=== PATIENT | male | born 2005 | race Caucasian/White ===

== ENCOUNTER 2025-04-15 10:06 | Outpatient (REF) | payer OTHER, SELFPAY ==
[2025-04-15 13:05] LABS: MANUAL DIFF FLAG NO
[2025-04-15 13:15] LABS: Hematocrit 50.4 % (42.0-52.0); Hemoglobin 17.0 g/dl (14.0-18.0); Imm Gran Abs Auto 0.01 X10*3/uL (0.00-0.03); Imm Gran Pct Auto 0.2 % (0.0-0.4); Lymphocytes Absolute Auto 1.7 X10*3/uL (1.2-4.9); Mean Corpuscular HGB Conc 33.7 g/dl (31.0-36.0); Mean Corpuscular Hemoglobin 29.9 pg (27.0-33.0); Mean Corpuscular Volume 88.7 fL (80.0-98.0); NRBC Abs Auto 0.000 X10*3/uL (0.0-0.012); NRBC Pct Auto 0.0 /100WBC (0.0-0.2); Platelet Count 286 X10*3/uL (160-400); Red Blood Count 5.68 X10*6/uL (4.60-5.80); White Blood Count 6.2 X10*3/uL (4.8-10.8)
[2025-04-15 13:18] LABS: Appearance Urine Clear; Glucose Urine UA Negative (Negative); PH 5.5 (5.0-9.0); Specific Gravity - Urine >= 1.030 (1.005-1.025)
[2025-04-15 14:43] LABS: CT PCR Urine NOT DETECTED (Not Detect.); NG PCR Urine NOT DETECTED (Not Detect.)
[2025-04-15 18:59] LABS: Alanine Aminotransferase 33 U/L (0-40); Albumin Level 5.1 g/dL (3.5-5.0); Alkaline Phosphatase 99 U/L (39-117); Anion Gap 13 (12-20); Aspartate Amino Transferase 28 U/L (5-37); Blood Urea Nitrogen 20 mg/dL (9-16); Calcium 10.0 mg/dL (8.4-10.2); Carbon Dioxide 27 mmol/L (22-29); Chloride 106 mmol/L (96-108); Cholesterol 164 mg/dL (<200); Estimated Glomerular Filt Rate > 60; HDL Cholesterol 37 mg/dL (>40); Magnesium 2.1 mg/dL (1.6-2.6); Potassium 4.5 mmol/L (3.3-5.1); Sodium 141 mmol/L (135-145); Total Protein 8.0 g/dL (6.5-8.0); Triglycerides 125 mg/dL (<150)
[2025-04-15 19:24] LABS: Folate 8.6 ng/mL (> or = 4.0); Vitamin B12 469 pg/mL (200-900)
[2025-04-16 04:40] LABS: Syphilis Screen Nonreactive (Nonreactive)
[2025-04-16 05:02] LABS: HBS Num1 1.19 mIU/mL (0-7.99); HBsAGNum1 0.42 S/CO (0.00-0.99); HIV Num 1 0.09 S/CO (0.00-0.99); Hepatitis B Surface Antigen Negative (Negative); ~HepC Num1 0.08 S/CO (0.00-0.79); ~Hepatitis B Surface Antibody NONREACTIVE (Nonreactive); ~Hepatitis C Antibody Nonreactive (Nonreactive)
[2025-04-21 15:09] LABS: VITAMIN D (1,25 OH) D3 39 pg/mL; Vit D (1,25-Dihydroxy) Total 39 pg/mL (18-72); Vitamin D (1,25 OH) D2 <8 pg/mL
== END 2025-04-15 10:07 | disposition home or self-care (01) ==
LOC: HO.HKASLDS 10:06
PROVIDERS: PCP Student in an Organized Health Care Education/Training Program; Visit Provider Student in an Organized Health Care Education/Training Program
DX: R45.851 Suicidal ideations (principal); F90.9 Attention-deficit hyperactivity disorder, unspecified type; F32.A Depression, unspecified; F41.9 Anxiety disorder, unspecified; G25.2 Other specified forms of tremor; J45.20 Mild intermittent asthma, uncomplicated; Z13.1 Encounter for screening for diabetes mellitus
CPT/HCPCS: 80053; 80061; 81003; 82607; 82652; 82746; 83036; 83735; 84443; 85025; 86706; 86780; 86803; 87340; 87389; 87491; 87591; 96127

== ENCOUNTER 2025-04-15 10:06 | Outpatient (AMB) | payer OTHER, SELFPAY ==
--- NOTE | 2025-04-15 10:16 | A.OFFPC_ITS ---
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 Accompanied by: mother Allergies amoxicillin Allergy (Intermediate, Verified 04/15/25 10:20) Rash sulfamethoxazole (From Bactrim) Allergy (Intermediate, Verified 04/15/25 10:20) Swelling trimethoprim (From Bactrim) Allergy (Intermediate, Verified 04/15/25 10:20) Swelling Tobacco use date assessed: 04/15/25 Dental Screening Dental Screen Date: 04/15/25 Did you have a dental visit in the last 12 months?: Yes Did you have a dental problem in the last 6 months where you did not have access to dental care?: Yes Was dental information given to patient?: Patient has dentist HPI HPI Comments History of Present Illness Details History of Present Illness The patient is a 20 year old individual presenting for evaluation of depression and to establish care. Depression with Suicidal Ideation: The patient reports feelings of depression that began approximately one year ago, which the patient attributes to cumulative guilt over past actions. The patient experiences frequent thoughts of self-harm and fears losing control and acting on these temptations. There is a history of one self-harm attempt using a knife, although the patient denies any active plans to self-harm at present. The patient first disclosed these feelings to the patient's mother two to three months ago and recently started seeing a counselor. This is the first time the patient has discussed these concerns with a physician. Anxiety: The patient has a past diagnosis of high anxiety from childhood. Due to this anxiety, the patient required special classes and could not be in a large classroom setting as it was overwhelming. Attention-Deficit/Hyperactivity Disorder: The patient carries a past diagnosis of Attention-Deficit/Hyperactivity Disorder (ADHD) from childhood. Mild Intermittent Asthma: The patient has a history of mild intermittent asthma, as noted in prior medical records. Fine Motor Essential Tremor: The patient has a history of a fine motor essential tremor, as documented in previous medical records. Surgical History: - No prior surgical history was reported . Medications: - The patient is not currently taking an y medications. Social History: - Employment and Education: The patient is currently not employed and not enrolled in school, stating a belief that the patient is mentally unstable for a job. - Substance Use: The patient denies smok ing or illicit drug use and reports occasional alcohol consumption around holidays. - Social Support: The patient lives with the patient's parents and identifies the patient's mother as the person the patient trusts the most, with whom the patient feels an emotional connection. - Developmental History: The patient had anger issues during childhood, for which the patient received therapy, attended special classes, and underwent psychiatric evaluations. - Aspirations: The patient expresses a d esire to take EMT classes after achieving better mental health. Family History: - Depression runs in the family. Diagnostic Results: - No diagnostic results were reviewed du ring this visit. Past Medical History - History of Attention-Deficit/Hyperacti vity Disorder (ADHD) diagnosed in childhood. - History of high anxiety, requiring spe cial classes in school. - History of mild intermittent asthma. - History of a fine motor essential trem or. - Past self-harm attempt by using a knif e. - Childhood history of anger issues, whi ch was managed with therapy, special classes, and psychological evaluations. - Previously received care at [facility] with Dr. Kenn Hummel. Health Maintenance - The patient is establishing care with a new primary care physician as the patient is now 20 years old. - Recommended referral to a neurobehavio ral specialist for formal psychiatric evaluation. - A comprehensive blood panel was ordere d to provide an overall picture of health, including screenings for HIV, hepatitis B, and hepatitis C. [facility] Medical History (Updated 04/15/25 @ 11:05 by Ivan Wyman MD) Anxiety Depression Mild intermittent asthma ADHD Surgical History (Updated 04/15/25 @ 10:22 by Isaías Vasquez CMA) English teeth extracted Family History (Updated 04/15/25 @ 10:24 by Isaías Vasquez CMA) Mother FH: mental illness Paternal Grandmother FH: mental illness Maternal Aunt FH: mental illness Maternal Grandfather FH: mental illness Skin cancer Diabetes Paternal Grandfather Heart disease Maternal Grandfather Prostate cancer Maternal Uncle Skin cancer Other Hypertension Social History (Updated 04/15/25 @ 10:25 by Isaías Vasquez CMA) Housing: House Alcohol intake: current Comment: Ocasionally Patient Tobacco Use Status: Never used Tobacco e-Cigarette/Vaping Use: Never Used Second Hand Smoke Exposure: No service: No Current occupational status: unemployed Current occupational exposures/hazards: No Cognitive needs: No Hearing needs: No Vision needs: No Questionnaire PHQ-9 Over the last 2 weeks, how often have you been bothered by any of the following problems? 1. Little interest or pleasure in doing things: several days 2. Feeling down, depressed, or hopeless: more than half the days 3. Trouble falling or staying asleep, or sleeping too much: several days 4. Feeling tired or having little energy: several days 5. Poor appetite or overeating: not at all 6. Feeling bad about yourself - or that you are a failure or have let yourself or your family down: more than half the days 7. Trouble concentrating on things, such as reading the newspaper or watching television: several days 8. Moving or speaking so slowly that other people could have noticed. Or the opposite - being so fidgety or restless that you have been moving around a lot more than usual: several days 9. Thoughts that you would be better off or of hurting yourself in some way: more than half the days Total score: 11 Depression Screening Interpretation: Positive Depression Screening Done: Yes 34771 - PHQ-9 Billing: Yes Source: Developed by Drs. Jonathan Martins, Nilda Jaramillo, Terry Garcia and colleagues, with an educational champ from [employer]. Thrive Questionnaire Date Thrive assessed: 04/15/25 I am a: Patient What is your living situation today?: I have a steady place to live Within the past 12 months, did the food you bought not last and you didn't have the money to get more?: Never true Within the past 12 months, did you worry whether your food would run out before you got money to buy more?: Never true Do you have trouble paying for medicines?: No Do you have trouble getting transportation to medical appointments?: No Do you have trouble paying your heating and electricity bill?: No Do you have trouble taking care of your child, family member or friend?: No Are you currently unemployed and looking for a job?: I choose not to answer this question Are you interested in more education?: Yes Please select the resources that you would like help with: None Currently or been in a relationship where the following occur: I choose not to answer THRIVE Score: 0 AUDIT C Alcohol Use Questionnaire (AUDIT-C) 1. How often do you have a drink containing alcohol?: Monthly or less 2. How many drinks containing alcohol do you have on a typical day when you are drinking?: 1 or 2 3. How often do you have six or more drinks on one occasion?: Never Total Score: 1 CORETTA-7 AMB Questionnaire CORETTA-7 Date CORETTA - 7 assessed: 04/15/25 Feeling nervous, anxious, or on edge: 2 = More than half the days Not being able to stop or control worryin = More than half the days Worrying too much about different things: 2 = More than half the days Trouble relaxin = Several days Being so restless that it is hard to sit still: 1 = Several days Becoming easily annoyed or irritable: 1 = Several days Feeling afraid as if something awful might happen: 1 = Several days Total CORETTA-7 score (0-4 normal; 5-9 mild; 10-14 moderate; 15-21 severe): 10 Source: Developed by Drs. Jonathan Martins, Nilda Jaramillo, Terry Garcia and colleagues, with an educational champ from [employer]. CORETTA-7 Assessment Billing CORETTA-7 Assessment Tool: CORETTA-7 Assessment 69827 Review of Systems Narrative Review of Systems - Psychiatric: Reports depression, frequent thoughts of self-harm, and fear of losing control. - Constitutional: Reports intermittent sleep. - Genitourinary/Gastrointestinal: Denies issues with urination or bowel movements. - Musculoskeletal/Extremities: Denies leg swelling. 10-point ROS reviewed and negative except as noted in HPI Physical exam (Primary Care) Vital Signs: Last Vital Signs Temp 98.3 F 04/15/25 10:25 Pulse 102 H 04/15/25 10:25 Resp 18 04/15/25 10:25 BP 125/74 04/15/25 10:25 Pulse Ox 99 04/15/25 10:25 BMI result Body Mass Index 27.5 Tobacco/Smoking Status: Tobacco use Status Tobacco use date assessed 04/15/25 04/15/25 10:27 Patient Tobacco Use Status Never used Tobacco 04/15/25 10:27 e-Cigarette/Vaping Use Never Used 04/15/25 10:27 PHQ-9: PHQ-9 Score PHQ-9: Total score 11 04/15/25 10:18 Depression Screening Interpretation: Positive Thrive Assessment: Date of Thrive Assessment Date Thrive assessed 04/15/25 04/15/25 10:18 Currently or been in a relationship where the following occur: I choose not to answer Narrative Physical Exam General: Well-appearing, in no acute distress. Vital signs: Within normal limits. HEENT: Normocephalic, atraumatic. PERRLA, EOMI. Conjunctiva clear, sclera anicteric. Oropharynx clear, mucous membranes moist. TMs intact bilaterally. Neck: Supple, no lymphadenopathy, no thyromegaly, no JVD or carotid bruits. Cardiovascular: RRR, normal S1/S2, no murmurs, rubs, or gallops. Peripheral pulses 2+ and symmetric. No edema. Respiratory: Lungs clear to auscultation bilaterally, no wheezes, rales, or rhonchi. Normal effort. Abdomen: Soft, non-tender, non-distended. Normoactive bowel sounds. No hepatosplenomegaly, no masses. MSK: Full range of motion, no joint swelling or deformity. Normal gait. Skin: Warm, dry, intact. No rashes, lesions, or pallor. Old self-harm tracy noted, barely visible. Neuro: Alert and oriented x3. Cranial nerves II-XII intact. Strength 5/5 throughout. Sensation intact. Reflexes 2+ symmetric. Normal coordination and gait. Psych: Appropriate mood and affect. Normal judgment and insight. Reports depression and high anxiety. History of ADHD and mild intermittent asthma. No current suicidal ideation, but past self-harm noted. Engaged in counseling. Coding Level of Care Code New Pt Level 4 (75047) Diagnoses ADHD F90.9 Mild intermittent asthma J45.20 Depression F32.A Anxiety F41.9 Additional Codes CORETTA-7 Assessment Billing - CORETTA-7 Assessment Tool: CORETTA-7 Assessment 07957 ([id number]) PHQ-9 - 46193 - PHQ-9 Billing: Yes ([id number]) Assessment & Plan Assessment & Plan (1) ADHD: Code(s): F90.9 - Attention-deficit hyperactivity disorder, unspecified type Category: Medical (2) Mild intermittent asthma: Code(s): J45.20 - Mild intermittent asthma, uncomplicated Category: Medical (3) Depression: Code(s): F32.A - Depression, unspecified Category: Medical (4) Anxiety: Code(s): F41.9 - Anxiety disorder, unspecified Category: Medical Plan Consent Consent for the visit and physical exam was implied by the patient's presence and participation. The patient verbally agreed to the plan for laboratory testing and referral to a specialist. No specific risks, benefits, or alternatives were detailed for the planned blood work or referrals. Patient was informed and verbally consented to the use of an ambient scribe for clinic note documentation during this visit. Plan 1. Depression With Suicidal Ideation - The patient was provided with a referral to [facility] for a formal evaluation, diagnosis, and comprehensive management plan. - Strongly advised the patient and the patient's mother to proceed to the nearest emergency room for any acute exacerbation of suicidal or self-harm ideation. - Discussed that medication would be appropriate for stabilization but will be deferred until after the specialist evaluation. - Provided spiritual counseling and encouragement. 2. Health Maintenance / New Patient Establishment - Ordered a comprehensive blood panel to establish a baseline and evaluate overall health, including a complete blood count, comprehensive metabolic panel, thyroid function tests, hemoglobin A1c, lipid panel, vitamin B12, folate, vitamin D, HIV, and hepatitis screening. - Scheduled a follow-up appointment in two weeks to review lab results and check on the status of the psychiatric referral. Discussion Notes I met with the 20-year-old patient and the patient's mother today. The patient presented with concerns for depression with associated suicidal ideation and a past self-harm attempt. Given the severity of the symptoms, I explained the importance of a formal and comprehensive psychiatric evaluation before initiating any pharmacotherapy. I provided a direct referral to [facility] for this purpose and stressed that they should seek immediate care in an emergency room if the patient feels like hurting themself. I also informed them of my plan to order comprehensive baseline lab work to assess for any underlying medical issues. We will follow up in two weeks to review these results and the progress with the mental health referral. I also engaged the patient in an extended discussion about guillermo and personal worth, as the patient identified as a believer, offering this as a source of strength and support. Both the patient and the patient's mother were in agreement with the proposed plan. Patient Instructions - Please call [facility] at [phone] as soon as possible to set up an evaluation, which can be done over Zoom. - If you have any feelings of wanting to hurt yourself, go to the nearest emergency room immediately or call your parents right away. - Please go to the lab to have your blood drawn for the tests that were ordered. - You have a follow-up appointment scheduled in two weeks to go over your lab results. - Engage in prayer and reading the Bible to help fortify yourself. Medical Decision Making The patient is a 20 year old individual [place] [facility] [place] with a chief complaint of depression and suicidal ideation with a past attempt. The patient's history of a self-harm attempt with a knife and frequent thoughts of self-harm indicate a high-risk situation requiring careful and immediate management. My primary goal is to ensure the patient's safety through stabilization and appropriate diagnosis. I have deferred the initiation of antidepressant medication at this visit. A formal evaluation by a personnel security specialist is crucial to confirm the diagnosis, rule out other conditions such as bipolar disorder, and select the most appropriate pharmacotherapy. Therefore, I have made an urgent referral to [facility] for this purpose and provided explicit instr uctions for emergency room use if ideation escalates. To establish the patient as a new primary care patient and rule out any organic causes contributing to the patient's symptoms, a comprehensive blood panel has been ordered. A follow-up in two weeks will allow for review of laboratory results and assessment of progress with the specialty referral. The patient's strong family support and personal guillermo were identified as significant protective factors and were incorporated into the counseling and overall plan. Total Time Statement 30 min Total time spent caring for the patient today includes pre-visit chart review, documentation, review of laboratory and diagnostic imaging results, medication reconciliation, medically necessary evaluation, counseling on diagnoses, care coordination, ordering appropriate tests and medications, review of tests performed by other providers, reporting test results to the patient, and communication with other healthcare providers. Orders: Orders Hepatitis B Surface Antigen Today Z13.9 - Encounter for screening, unspecified Syphilis Screen Today Z13.9 - Encounter for screening, unspecified Comprehensive Met. Panel Today Z13.9 - Encounter for screening, unspecified CT NG by PCR Urine Today Z13.9 - Encounter for screening, unspecified HIV Ab/Ag Today Z13.9 - Encounter for screening, unspecified UA CC w/rflx Micro + Cult Today Z13.9 - Encounter for screening, unspecified Lipid Panel Today Z13.9 - Encounter for screening, unspecified Hemoglobin A1c Today Z13.9 - Encounter for screening, unspecified Vitamin D 1,25 dihydroxy Today Z13.9 - Encounter for screening, unspecified Complete Blood Count Auto Diff Today Z13.9 - Encounter for screening, unspecified Hepatitis C Antibody Today Z13.9 - Encounter for screening, unspecified TSH reflex Free T4 Today Z13.9 - Encounter for screening, unspecified Vitamin B12 and Folate Today Z13.9 - Encounter for screening, unspecified Magnesium Today Z13.9 - Encounter for screening, unspecified Hepatitis B Surface Antibody Today Z13.9 - Encounter for screening, unspecified
[2025-04-15 10:25] VITALS: BP 125/74; PULSE 102; RESP 18; TEMP 36.8; O2SAT 99; BMI 27.5
--- OUTSIDE RECORDS SUMMARY | 2025-04-15 12:15 | XMS_ITS | Encounter Summary ---
Author Organization [facility] Address [address] [place] [phone] Phone Care Team Providers Care Monogram Operator Name Role Phone Kenn Cherry MD Primary Care Provider [phone] Encounter Details Date Type Department Care Team (Late st Contact Info) Description 10/09/2017 Conversion Encounter [facility] [address] [place] [address] Social History Tobacco Use Types Packs/Day Years Used Date Smoking Tobacco: Never Assessed Sex and Gender Information Value Date Recorded Sex Assigned at Male 07/16/2020 4:05 PM EST Legal Sex Male 6:29 PM EDT Gender Identity Male 07/16/2020 4:05 PM EST Sexual Orientation Straight 07/16/2020 4: 05 PM EST documented as of this encounter Plan of Treatment Not on file documented as of this encounter Visit Diagnoses Not on filedocumented in this encounter Care Teams Monogram Operator Relationship Specialty Start Date End Date Kenn Cherry MD [address] [place] [address] PCP - General Pediatrics 11/08/23 documented as of this encounter
--- OUTSIDE RECORDS SUMMARY | 2025-04-15 12:15 | XMS_ITS | Clinical Summary ---
Author Organization [facility] Address [address] [place] [address] Phone Care Team Providers Care Automatic Wheel Line Operator Name Role Phone Kenn Cherry MD Primary Care Provider + [phone] Allergies Active Allergy Reactions Criticality Noted Date Comments Amoxicillin Sulfamethoxazole-Trimethoprim Rash Low Medications albuterol HFA 108 (90 Base) MCG/ACT inhalerIndicatio ns:Asthma, unspecified asthma severity, unspecified whether complicated, unspecified whether persistent INHALE 2 PUFFS BY MOUTH EVERY 4 HOURS NEEDED FOR WHEEZING OR SHORTNESS OF BREATH 1 Units 1 Active methylphenidate 27 MG CR tablet Take 27 mg by mouth every morning. 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 Intrinsic eczema 11/08/2023 Assessment & Plan (11/08/2023 10:42 AM EDT): Can use HC1% if needed. Mild intermittent asthma without complication Assessment & Plan (01/29/2025 10:40 AM EDT): No concerns at this time. Assessment & Plan (11/08/2023 10:32 AM EDT): Asthma under control, will refer to hairspring assembler for PFTs Assessment & Plan (10/14/2022 3:37 PM EDT): No current issues Attention deficit hyperactiv ity disorder (ADHD), combined type 06/01/2017 Assessment & Plan (11/08/2023 10:38 AM EDT): No current issues. Recurrent major depressive disorder 10/22/2016 Assessment & Plan (10/14/2022 3:37 PM EDT): Doing well at this time. Anxiety 05/09/2015 Assessment & Plan (01/29/2025 10:28 AM EDT): Recommended to see therapist. Will go through insurance. Assessment & Plan (11/08/2023 10:38 AM EDT): No current issues at this time. Other impulse disorders 05/09/2015 Encounters Date Type Department Care Team Description 03/20/2025 Telephone [facility] [address] [address] Kenn Cherry MD Release of records 01/30/2025 Results Follow-Up [facility] [address] [address] Kenn Cherry MD 01/30/2025 Telephone [facility] [address] [address] Kenn Cherry MD Results 01/29/2025 11:00 AM EDT Office Visit [facility] [address] [address] Kenn Cherry MD Well adult exam (Primary Dx); Anxiety; Attention deficit hyperactivity disorder (ADHD), combined type; BMI 27.0-27.9,adult; Tremor; Mild intermittent asthma without complication from Last 3 Months Immunizations Immunization Administration Dates Next Due DTaP 01/20/2010,04/18/2006 DTaP / Hep B / IPV 2005,2005, 005 Hep A, ped/adol 06/05/2019,06/02/2018 Hep B, ped/adol 2005 Hib (PRP-T) 04/18/2006, 6,2005,03/17 IPV 01/20/2010 Influenza, injectable, quadrivalent 03/11/2008 Influenza, injectable, triva lent, preservative free 03/13/2007,04/18/2006,2005,08/09 MMR 03/06/2009 MMRV 02/14/2006 Meningococcal Conj (Menactra) MCV4P 09/29/2021,1 07/14/2015 Pneumococcal Conjugate 04/18/2006,2005,2005,03/17 Tdap 05/13/2016 Varicella 03/06/2009 Family History Medical History Relation Name Comments No Known Problems Brother nadja Hypertension Father Cancer Maternal Grandfather Forehea d No Known Problems Mother Relation Name Status Comments Brother nadja Alive Father Alive hypertension, h x amblyopia, pericardial infection 04/04 age: 51 diagnosed with Hypertension Father's Sister Alive healthy Maternal Grandfather Alive DM age: 70 diagnosed with DMII WO CMP NT [facility] Maternal Grandmother Alive DVT age : 68 Mother Alive Healthy, system ic infection resulting from abscessed tooth 04/04 age: 46 Other Alive Siblings: healt hy age: 3 Paternal Grandfather Alive CAD age : 69 diagnosed with HEART DISEASE NOS Paternal Grandmother Alive age: 67 diagnosed with DMII WO CMP NT [facility] Social History Tobacco Use Types Packs/Day Years Used Date Smoking Tobacco: Never Assessed Hunger/Food Answer Date Recorded In the last 12 months, did y ou or your family ever eat less than you felt you should because there wasn't enough money for food? No 01/29/2025 Stable Housing Answer Date Recorded Are you worried that in the next 2 months you may not have stable housing? No 01/29/2025 Transportation Concerns Answer Date Rec orded In the last 12 months, have you or your family ever had to go without healthcare because you didn't have a way to get there? No 01/29/2025 Hazards in Home Answer Date Recorded Think about the place you li ve. Do you have problems with any of the following? Pests (mice or roaches), mold, no/not working smoke detectors, water leaks, no window guards. No 2024 Financing Utilities Answer Date Recorde d In the last 12 months, has t he electric, gas, oil, or water company threatened to shut off your services in your home? No 01/29/2025 Safety at Home Answer Date Recorded Are you or your family worried about feeling saf e in your home? No 01/29/2025 Outside Support Answer Date Recorded Do you feel that you need mo re support from other people or programs to help you care for yourself or your family? Yes 01/29/2025 Understanding Health Concerns Answer Da te Recorded Do you need help understandi ng your or your child's healthcare needs (diagnosis, medications, plan, etc.)? No 01/29/2025 Financing Health Concerns Answer Date R ecorded In the last 12 months, was t here a time when your child needed to see a doctor or get medications or supplies but could not because of cost? Yes 01/29/2025 Missing School or Work Answer Date Andrea rded Did you or your child miss s chool or work because of a health problem that could have been avoided? No 01/29/2025 Child Education Answer Date Recorded Do you have concerns about y our/your child's learning or behavior in school, preschool, or daycare? No 01/29/2025 Sex and Gender Information Value Date Recorded Sex Assigned at Male 07/16/2020 4:05 PM EST Legal Sex Male 6:29 PM EDT Gender Identity Male 07/16/2020 4:05 PM EST Sexual Orientation Straight 07/16/2020 4: 05 PM EST Last Filed Vital Signs Vital Sign Reading Time Taken Comments Blood Pressure 118/84 01/29/2025 9:51 AM EDT Pulse 116 03/16/2011 12:00 AM EDT Temperature 36.8 C (98.3 F) 05/28/2022 3:49 PM EST Respiratory Rate - - Oxygen Saturation 96% 03/16/2011 12: 00 AM EDT Inhaled Oxygen Concentration - - Weight 88.8 kg (195 lb 12.8 oz) 01/29/2025 9:51 AM EDT Height 180.3 cm (5' 11 ) 01/29/2025 9:51 AM EDT Body Mass Index 27.31 01/29/2025 9:51 AM EDT Plan of Treatment Health Maintenance Due Date Last Done Comments HPV Vaccines (1 - Male 3-dos e series) 01/19/2020 Men B Vaccine (1 of 2 - Standard) 2021 Influenza Vaccines (#1) 2024 03/11/20 08, 03/13/2007, 04/18/2006, Additional history exists COVID-19 Vaccine (1 - 2024-2 6 season) 2025 DTaP,Tdap,and Td Vaccines (7 - Td or Tdap) 05/13/2026 05/13/2016, 01/20/2010, 04/18/2006, Additional history exists Hepatitis B Vaccines Completed 2005, 2005, 2005, Additional history exists HIB Vaccines Completed 04/18/2006, 06/2005, 2005, Additional history exists Pneumococcal Vaccine Completed 04/18/2006, 2005, 2005, Additional history exists MMR Vaccines Completed 03/06/2009, 02/14/2006 Varicella Vaccines Completed 03/06/2009, 02/14/2006 IPV Vaccines Completed 01/20/2010, 09/21, 2005, Additional history exists Hepatitis A Vaccines Completed 06/05/2019, 06/02/19 19 Meningococcal Vaccine Completed 09/29/2021, 016 Procedures * Due to [place] state law, this organization might not be sharing sensitive test results. Procedure Name Priority Date/Time Associated Diagnosis Comments CHLAMYDIA AND GONORRHEA, AMPLIFIED Routine 01/29/2025 11:33 AM EDT Well adult exam T4, FREE Routine 01/29/2025 11:01 AM EDT Tremor TSH Routine 01/29/2025 11:01 AM EDT Tremor COMPREHENSIVE METABOLIC PANEL Routine 01/29/2025 11:01 AM EDT Tremor CBC DIFFERENTIAL Routine 01/29/2025 11:0 1 AM EDT Tremor BRIEF BEHAVIORAL ASSESSMENT - NORMAL(PSC,PHQ9,VANDER BILT,ETC) Routine 01/29/2025 10:15 AM EDT Well adult exam from Last 3 Months Results * Due to [place] state law, this organization might not be sharing sensitive test results. * Chlamydia and Gonorrhoea, Amplified (01/29/2025 11:33 AM EDT) C trach CATHLEEN Negative Negative [facility] N gonorrhoeae CATHLEEN Negative Negative [facility] Urine (Urine) 01/29/2025 11: 33 AM EDT 01/29/2025 Comment:Urine Narrative [facility] - 01/30/2025 4:05 PM EDT Performed at: 01 - [address], [address], [place], [place] [id number] Machinist Wood: Solis Moreno MD, Phone: [phone] Kenn Cherry MD LAB MICROBIOLOGY - GENERAL O RDERABLES Final Result [facility] [address] [place] [address] * CBC and Differential (01/29/2025 11:01 AM EDT) WBC 7.6 3.4 - 10.8 x10E3/uL [facility] RBC 5.36 4.14 - 5.80 x10E6/uL [facility] HGB 15.7 13.0 - 17.7 g/dL [facility] HCT 48.5 37.5 - 51.0 % [facility] MCV 91 79 - 97 fL [facility] MCH 29.3 26.6 - 33.0 pg [facility] MCHC 32.4 31.5 - 35.7 g/dL [facility] RDW 13.4 11.6 - 15.4 % [facility] Platelets in Blood, Automated Count 279 150 - 450 x10E3/uL [facility] Neutrophils % 55 Not Estab. % [facility] Lymphocytes % 32 Not Estab. % [facility] Monocytes % 7 Not Estab. % [facility] Eosinophils % 5 Not Estab. % [facility] Basophil % 1 Not Estab. % [facility] Neutrophils Absolute 4.3 1.4 - 7.0 x10E3/uL [facility] Lymphocytes Absolute 2.4 0.7 - 3.1 x10E3/uL [facility] Monocytes Absolute 0.5 0.1 - 0.9 x10E3/uL [facility] Eosinophils Absolute 0.4 0.0 - 0.4 x10E3/uL [facility] Basophil Absolute 0.1 0.0 - 0.2 x10E3/uL [facility] Immature Granulocytes % 0 Not Estab. % [facility] Immature Granulocytes Absolute 0.0 0.0 - 0.1 x10E3/uL [facility] Blood 01/29/2025 11:0 1 AM EDT 01/29/2025 Narrative [facility] - 01/30/2025 1:05 AM EDT Performed at: [address] [place] [id number] Machinist Wood: Latasha Diaz MD, Phone: [phone] Kenn Cherry MD LAB BLOOD ORDERABLES Final R esult Performing Organization Address [facility] de Phone Number [address] [address] * TSH (01/29/2025 11:01 AM EDT) Pathologist [facility] TSH (Thyroid Stimulating Hormone) 2.830 0.450 - 4.500 uIU/mL [facility] Blood 01/29/2025 11:0 1 AM EDT 01/29/2025 Narrative [facility] - 01/30/2025 5:05 AM EDT Performed at: [facility] [id number] Machinist Wood: Latasha Diaz MD, Phone: [phone] Kenn Cherry MD LAB BLOOD ORDERABLES Final R esult Performing Organization Address [facility] [place] [address] * T4, free (01/29/2025 11:01 AM EDT) Free T4 1.09 0.82 - 1.77 ng/dL [facility] Blood 01/29/2025 11:0 1 AM EDT 01/29/2025 Narrative [facility] - 01/30/2025 5:05 AM EDT Performed at: 01 - [address] [id number] Machinist Wood: Latasha Diaz MD, Phone: [phone] us Kenn Cherry MD LAB BLOOD ORDERABLES Final R esult [facility] [address] [place] [address] * (ABNORMAL) Comprehensive metabolic panel (01/29/2025 11:01 AM EDT) Pathologist [facility] Glucose 88 70 - 99 mg/dL [facility] Urea Nitrogen 14 6 - 20 mg/dL [facility] Creatinine 1.05 0.76 - 1.27 mg/dL [facility] BUN/Creatinine Ratio 13 9 - 20 [facility] Sodium 141 134 - 144 mmol/L [facility] Potassium 4.4 3.5 - 5.2 mmol/L [facility] Chloride 102 96 - 106 mmol/L [facility] Carbon Dioxide, Total 21 20 - 29 mmol/L [facility] Calcium 9.6 8.7 - 10.2 mg/dL [facility] Protein, Total 6.9 6.0 - 8.5 g/dL [facility] Albumin 4.9 4.3 - 5.2 g/dL [facility] Globulin Total 2.0 1.5 - 4.5 g/dL [facility] Bilirubin, Total 1.5(H) 0.0 - 1.2 mg/dL [facility] Alkaline Phosphatase 109 51 - 125 IU/L [facility] Comment: Effective February 04, 2025 Alkaline Phosphatase reference interval will be changing to: Age Male Female 0 - 5 days 47 - 127 47 - 127 6 - 10 days 29 - 242 29 - 242 11 - 20 days 109 - 357 109 - 357 21 - 30 days 94 - 494 94 - 494 1 - 2 months 149 - 539 149 - 539 3 - 6 months 131 - 452 131 - 452 7 - 11 months 117 - 401 117 - 401 12 months - 6 years 158 - 369 158 - 369 7 - 12 years 150 - 409 150 - 409 13 years 156 - 435 78 - 227 14 years 114 - 375 64 - 161 15 years 88 - 279 56 - 134 16 years 74 - 207 51 - 121 17 years 63 - 161 47 - 113 18 - 20 years 51 - 125 42 - 106 21 - 50 years 47 - 123 41 - 116 51 - 80 years 49 - 135 51 - 125 >80 years 48 - 129 48 - 129 AST (SGOT) 13 0 - 40 IU/L [facility] ALT (SGPT) 17 0 - 44 IU/L [facility] Blood 01/29/2025 11:0 1 AM EDT 01/29/2025 Narrative [facility] - 01/30/2025 4:05 AM EDT Performed at: 01 - [facility] [address] [id number] Machinist Wood: Latasha Diaz MD, Phone: [phone] us Kenn Cherry MD LAB BLOOD ORDERABLES Final R esult Performing Organization Address City/State/[facility] Co de Phone Number [facility] [address] [place] [address] from Last 3 Months Insurance [employer] EPO OPEN ACCESS Care Teams Automatic Wheel Line Operator Relationship Specialty Start Date End Date Kenn Cherry MD [address] [place] [address] [place] [address] PCP - General Pediatrics 11/08/23
--- OUTSIDE RECORDS SUMMARY | 2025-04-15 12:15 | XMS_ITS | Encounter Summary ---
Author Organization [facility] Address [address] [place] [address] Phone Care Team Providers Care Amr Physician Name Role Phone Kenn Cherry MD Primary Care Provider [phone] Encounter Details Date Type Department Care Team (Late st Contact Info) Description 07/03/2009 Documentation [facility] Family Medicine [address] [place], [place] [id number] Family Medicine, Physician [address], [place] [address] Social History Tobacco Use Types Packs/Day Years [...] on filedocumented in this encounter Care Teams Amr Physician Relationship Specialty Start Date End Date Kenn Cherry MD [address] [place] [address] PCP - General Pediatrics 11/08/23 documented as of this encounter
--- OUTSIDE RECORDS SUMMARY | 2025-04-15 12:15 | XMS_ITS | Encounter Summary ---
Author Organization [facility] Address [address] [place] [address] Phone Care Team Providers Care Auto [employer] Safety Program Coordinator Name Role Phone Kenn Cherry MD Primary Care Provider + [phone] Reason for Visit * Reason Comments Med Refill Encounter Details Date Type Department Care Team ([facility] st Contact Info) Description 08/07/2020 [facility]ill [facility] [address] [address] Jude Jenkins MD Asthma, unspecified asthma severity, unspecified whether complicated, unspecified whether persistent Social History Tobacco Use Types Packs/Day Years Used Date Smoking Tobacco: Never Assessed Sex and Gender Information Value Date Recorded Sex Assigned at Male 07/16/2020 4:05 PM EST Legal Sex Male 6:29 PM EDT Gender Identity Male 07/16/2020 4:05 PM EST Sexual Orientation Straight 07/16/2020 4: 05 PM EST documented as of this encounter Miscellaneous Notes * Telephone Encounter - Jude Jenkins MD - 08/07/2020 10:38 AM EDT RX eprescribed * Telephone Encounter - Kirstie Mejias MA - 08/07/2020 9:40 AM EDT Request for refill on albuterol HFA inhaler Forward to Dr. Jenkins for review and send to the pharmacy. Thanks documented in this encounter Plan of Treatment Not on file documented as of this encounter Visit Diagnoses Diagnosis Asthma, unspecified asthma severity, unspecified whether complicated, unspecified whether persistent documented in this encounter Care Teams [employer] Safety Program Coordinator Relationship Specialty Start Date End Date Kenn Cherry MD [address] [place] [address] PCP - General Pediatrics 11/08/23 documented as of this encounter
--- OUTSIDE RECORDS SUMMARY | 2025-04-15 12:15 | XMS_ITS | Encounter Summary ---
Author Organization [facility] Address [address] [place] [address] Phone Care Team Providers Care Clinical Unit Coordinator Name Role Phone Kenn Cherry MD Primary Care Provider [phone] Encounter Details Date Type Department Care Team (Late st Contact Info) Description 07/12/2009 Documentation [facility] Family Medicine [address] [place], [place] [id number] Family Medicine, Physician [address], [place] [address] Social History Tobacco Use Types Packs/Day Years [...] on filedocumented in this encounter Care Teams Clinical Unit Coordinator Relationship Specialty Start Date End Date Kenn Cherry MD [address] [place] [address] PCP - General Pediatrics 11/08/23 documented as of this encounter
== END 2025-04-15 10:55 | disposition home or self-care (01) ==
LOC: HO.HMCFMS 10:07
PROVIDERS: PCP Student in an Organized Health Care Education/Training Program; Visit Provider Student in an Organized Health Care Education/Training Program
DX: F90.9 Attention-deficit hyperactivity disorder, unspecified type (principal); J45.20 Mild intermittent asthma, uncomplicated; F32.A Depression, unspecified; F41.9 Anxiety disorder, unspecified

== ENCOUNTER 2025-04-30 12:56 | Outpatient (AMB) | payer OTHER, SELFPAY ==
--- NOTE | 2025-04-30 13:07 | MHC.PC.OV ---
Vital Signs 04/30/25 13:08 Height 5 ft 11 in Weight 195 lb 6 oz BMI 27.2 BP 121/56 L Blood Pressure Location Rt brachial Position Sitting Respiration 16 Pulse 76 Pulse Source Pulse Oximeter Temp 98 F Temp Source Oral Pulse Oximetry (%) 96 Oxygen Delivery Method Room Air Intake Visit Reasons: 2 week follow up Accompanied by: Self / Same As Patient Allergies amoxicillin Allergy (Intermediate, Verified 04/30/25 13:10) Rash sulfamethoxazole (From Bactrim) Allergy (Intermediate, Verified 04/30/25 13:10) Swelling trimethoprim (From Bactrim) Allergy (Intermediate, Verified 04/30/25 13:10) Swelling Tobacco use date assessed: 04/30/25 Dental Screening Dental Screen Date: 04/30/25 Did you have a dental visit in the last 12 months?: Yes PFSH Medical History Anxiety Depression Mild intermittent asthma ADHD Surgical History [place] teeth extracted Family History Mother FH: mental illness Paternal Grandmother FH: mental illness Maternal Aunt FH: mental illness Maternal Grandfather FH: mental illness Skin cancer Diabetes Paternal Grandfather Heart disease Maternal Grandfather Prostate cancer Maternal Uncle Skin cancer Other Hypertension Social History Housing: House Alcohol intake: current Comment: Ocasionally Patient Tobacco Use Status: Never used Tobacco e-Cigarette/Vaping Use: Never Used Second Hand Smoke Exposure: No service: No Current occupational status: unemployed Current occupational exposures/hazards: No Cognitive needs: No Hearing needs: No Vision needs: No Questionnaire PHQ-9 Over the last 2 weeks, how often have you been bothered by any of the following problems? 1. Little interest or pleasure in doing things: several days 2. Feeling down, depressed, or hopeless: more than half the days 3. Trouble falling or staying asleep, or sleeping too much: several days 4. Feeling tired or having little energy: several days 5. Poor appetite or overeating: not at all 6. Feeling bad about yourself - or that you are a failure or have let yourself or your family down: more than half the days 7. Trouble concentrating on things, such as reading the newspaper or watching television: several days 8. Moving or speaking so slowly that other people could have noticed. Or the opposite - being so fidgety or restless that you have been moving around a lot more than usual: several days 9. Thoughts that you would be better off or of hurting yourself in some way: more than half the days Total score: 11 Depression Screening Interpretation: Positive Depression Screening Done: Yes 46781 - PHQ-9 Billing: Yes Source: Developed by Drs. Jonathan Martins, Nilda Jaramillo, Terry Garcia and colleagues, with an educational champ from [employer]. Thrive Questionnaire Date Thrive assessed: 04/30/25 I am a: Patient What is your living situation today?: I have a steady place to live Within the past 12 months, did the food you bought not last and you didn't have the money to get more?: Never true Within the past 12 months, did you worry whether your food would run out before you got money to buy more?: Never true Do you have trouble paying for medicines?: No Do you have trouble getting transportation to medical appointments?: No Do you have trouble paying your heating and electricity bill?: No Do you have trouble taking care of your child, family member or friend?: No Are you currently unemployed and looking for a job?: I choose not to answer this question Are you interested in more education?: Yes Please select the resources that you would like help with: None Currently or been in a relationship where the following occur: I choose not to answer THRIVE Score: 0 AUDIT C Alcohol Use Questionnaire (AUDIT-C) 1. How often do you have a drink containing alcohol?: Monthly or less 2. How many drinks containing alcohol do you have on a typical day when you are drinking?: 1 or 2 3. How often do you have six or more drinks on one occasion?: Never Total Score: 1 CORETTA-7 AMB Questionnaire CORETTA-7 Date CORETTA - 7 assessed: 04/30/25 Feeling nervous, anxious, or on edge: 2 = More than half the days Not being able to stop or control worryin = More than half the days Worrying too much about different things: 2 = More than half the days Trouble relaxin = Several days Being so restless that it is hard to sit still: 1 = Several days Becoming easily annoyed or irritable: 1 = Several days Feeling afraid as if something awful might happen: 1 = Several days Total CORETTA-7 score (0-4 normal; 5-9 mild; 10-14 moderate; 15-21 severe): 10 Source: Developed by Drs. Jonathan Martins, Nilda Jaramillo, Terry Garcia and colleagues, with an educational champ from [employer]. CORETTA-7 Assessment Billing CORETTA-7 Assessment Tool: CORETTA-7 Assessment 37667 Physical exam (Primary Care) Vital Signs: Last Vital Signs Temp 98 F 04/30/25 13:08 Pulse 76 04/30/25 13:08 Resp 16 04/30/25 13:08 BP 121/56 L 04/30/25 13:08 Pulse Ox 96 04/30/25 13:08 Oxygen Delivery Method Room Air 04/30/25 13:08 BMI result Body Mass Index 27.2 Tobacco/Smoking Status: Tobacco use Status Tobacco use date assessed 04/30/25 04/30/25 13:09 Patient Tobacco Use Status Never used Tobacco 04/30/25 13:11 e-Cigarette/Vaping Use Never Used 04/30/25 13:11 PHQ-9: PHQ-9 Score PHQ-9: Total score 11 04/30/25 13:09 Depression Screening Interpretation: Positive Thrive Assessment: Date of Thrive Assessment Date Thrive assessed 04/30/25 04/30/25 13:09 Currently or been in a relationship where the following occur: I choose not to answer Coding Additional Codes CORETTA-7 Assessment Billing - CORETTA-7 Assessment Tool: CORETTA-7 Assessment 13104 ([id number]) PHQ-9 - 85152 - PHQ-9 Billing: Yes ([id number])
[2025-04-30 13:08] VITALS: BP 121/56; PULSE 76; RESP 16; TEMP 36.6; O2SAT 96; BMI 27.2
--- NOTE | 2025-04-30 13:08 | MHC.PC.OV ---
Vital Signs 04/30/25 13:08 Height 5 ft 11 in Weight 195 lb 6 oz BMI 27.2 BP 121/56 L Blood Pressure Location Rt brachial Position Sitting Respiration 16 Pulse 76 Pulse Source Pulse Oximeter Temp 98 F Temp Source Oral Pulse Oximetry (%) 96 Oxygen Delivery Method Room Air Intake Visit Reasons: 2 week follow up Intake Note: follow up Logistics Assistant Required: No Allergies amoxicillin Allergy (Intermediate, Verified 04/30/25 13:10) Rash sulfamethoxazole (From Bactrim) Allergy (Intermediate, Verified 04/30/25 13:10) Swelling trimethoprim (From Bactrim) Allergy (Intermediate, Verified 04/30/25 13:10) Swelling Tobacco use date assessed: 04/15/25 Dental Screening Dental Screen Date: 04/15/25 [facility] Medical History Anxiety Depression Mild intermittent asthma ADHD Surgical History [place] teeth extracted Family History Mother FH: mental illness Paternal Grandmother FH: mental illness Maternal Aunt FH: mental illness Maternal Grandfather FH: mental illness Skin cancer Diabetes Paternal Grandfather Heart disease Maternal Grandfather Prostate cancer Maternal Uncle Skin cancer Other Hypertension Social History Housing: House Alcohol intake: current Comment: Ocasionally Patient Tobacco Use Status: Never used Tobacco e-Cigarette/Vaping Use: Never Used Second Hand Smoke Exposure: No service: No Current occupational status: unemployed Current occupational exposures/hazards: No Cognitive needs: No Hearing needs: No Vision needs: No Questionnaire PHQ-9 Over the last 2 weeks, how often have you been bothered by any of the following problems? 1. Little interest or pleasure in doing things: several days 2. Feeling down, depressed, or hopeless: more than half the days 3. Trouble falling or staying asleep, or sleeping too much: several days 4. Feeling tired or having little energy: several days 5. Poor appetite or overeating: not at all 6. Feeling bad about yourself - or that you are a failure or have let yourself or your family down: more than half the days 7. Trouble concentrating on things, such as reading the newspaper or watching television: several days 8. Moving or speaking so slowly that other people could have noticed. Or the opposite - being so fidgety or restless that you have been moving around a lot more than usual: several days 9. Thoughts that you would be better off or of hurting yourself in some way: more than half the days Total score: 11 Depression Screening Interpretation: Positive Depression Screening Done: Yes 55244 - PHQ-9 Billing: Yes Source: Developed by Drs. Jonathan Martins, Nilda Jaramillo, Terry Garcia and colleagues, with an educational champ from [employer]. Thrive Questionnaire Date Thrive assessed: 04/15/25 I am a: Patient What is your living situation today?: I have a steady place to live Within the past 12 months, did the food you bought not last and you didn't have the money to get more?: Never true Within the past 12 months, did you worry whether your food would run out before you got money to buy more?: Never true Do you have trouble paying for medicines?: No Do you have trouble getting transportation to medical appointments?: No Do you have trouble paying your heating and electricity bill?: No Do you have trouble taking care of your child, family member or friend?: No Are you currently unemployed and looking for a job?: I choose not to answer this question Are you interested in more education?: Yes Please select the resources that you would like help with: None Currently or been in a relationship where the following occur: I choose not to answer THRIVE Score: 0 AUDIT C Alcohol Use Questionnaire (AUDIT-C) 1. How often do you have a drink containing alcohol?: Never Total Score: 0 CORETTA-7 AMB Questionnaire CORETTA-7 Date CORETTA - 7 assessed: 04/15/25 Feeling nervous, anxious, or on edge: 2 = More than half the days Not being able to stop or control worryin = More than half the days Worrying too much about different things: 2 = More than half the days Trouble relaxin = Several days Being so restless that it is hard to sit still: 1 = Several days Becoming easily annoyed or irritable: 1 = Several days Feeling afraid as if something awful might happen: 1 = Several days Total CORETTA-7 score (0-4 normal; 5-9 mild; 10-14 moderate; 15-21 severe): 10 Source: Developed by Drs. Jonathan Martins, Nilda Jaramillo, Terry Garcia and colleagues, with an educational champ from [employer]. CORETTA-7 Assessment Billing CORETTA-7 Assessment Tool: CORETTA-7 Assessment 94519 Physical exam (Primary Care) Tobacco/Smoking Status: Tobacco use Status Tobacco use date assessed 04/15/25 04/15/25 10:27 Patient Tobacco Use Status Never used Tobacco 04/15/25 10:27 e-Cigarette/Vaping Use Never Used 04/15/25 10:27 Depression Screening Interpretation: Positive Thrive Assessment: Date of Thrive Assessment Date Thrive assessed 04/15/25 04/15/25 10:18 Currently or been in a relationship where the following occur: I choose not to answer Coding Additional Codes PHQ-9 - 38553 - PHQ-9 Billing: Yes ([id number]) CORETTA-7 Assessment Billing - CORETTA-7 Assessment Tool: CORETTA-7 Assessment 55994 ([id number]) Assessment & Plan Assessment & Plan Orders: Orders Influenza [id number] Immunization Today Z23 - Encounter for immunization Medications: New Fluarix [id number] (PF) (flu vac ts (6mos up)-PF) 0.5 mL IM ONCE 0.5 mL 0RF NS Z23 - Encounter for immunization
--- NOTE | 2025-05-01 08:37 | A.OFFPC_ITS ---
Vital Signs 04/30/25 13:08 Height 5 ft 11 in Weight 195 lb 6 oz BMI 27.2 BP 121/56 L Blood Pressure Location Rt brachial Position Sitting Respiration 16 Pulse 76 Pulse Source Pulse Oximeter Temp 98 F Temp Source Oral Pulse Oximetry (%) 96 Oxygen Delivery Method Room Air Intake Visit Reasons: 2 week follow up Intake Note: patient is present for 2 week follow up. Accompanied by: Mother Allergies amoxicillin Allergy (Intermediate, Verified 04/30/25 13:10) Rash sulfamethoxazole (From Bactrim) Allergy (Intermediate, Verified 04/30/25 13:10) Swelling trimethoprim (From Bactrim) Allergy (Intermediate, Verified 04/30/25 13:10) Swelling Tobacco use date assessed: 04/30/25 Dental Screening Dental Screen Date: 04/30/25 HPI HPI Comments History of Present Illness Details Consent Patient was informed and verbally consented to the use of an ambient scribe for clinic note documentation during this visit. History of Present Illness The patient is a 20-year-old male returning for follow-up of lab results from his initial visit. Anxiety/Depression/ behavioral health condition: The patient and his mother report that he had an appointment with [facility] and is currently on an unspecified medication. He is reportedly feeling much better, which his mother confirms. Medications: - The patient takes no regular medicatio ns prescribed by this provider. - He is on an unspecified medication fro [facility]. Social History: - The patient's mother accompanied him t o the visit. Diagnostic Results: - CBC: White blood cells, RBCs, hemoglob in, hematocrit, and platelets are normal. - Differential: Eosinophils are elevated at 6%. - CMP: Sodium, potassium, renal function , calcium, and magnesium are normal. - Glucose: Random glucose and Hemoglobin A1c are normal. - Liver Function: Normal. - Lipid Panel (nonfasting): Triglyceride s and total cholesterol are good; LDL is 102 mg/dL and HDL is 37 mg/dL. - Vitamin Levels: Vitamin B12 is 469 pg/ mL; Vitamin D is normal. - Thyroid: TSH is normal. - Urinalysis: Elevated specific gravity; otherwise normal. - STI screening: Gonorrhea, chlamydia, s yphilis, Hepatitis B, Hepatitis C, and HIV are negative. - Hepatitis B antibodies: Negative. Review of Systems - General: Denies any current complaints . 10-point ROS reviewed and negative excep t as noted in HPI Past Medical History - Currently receiving care from [facility]. Health Maintenance - STI screening was performed and result s for gonorrhea, chlamydia, syphilis, Hepatitis B, Hepatitis C, and HIV were negative. - The patient has no Hepatitis B antibod ies, indicating he has not been vaccinated. - Labs will be repeated in 6 months to m onitor eosinophils. [facility] Medical History (Updated 05/04/25 @ 14:57 by Ivan Wyman MD) Low HDL (under 40) Eosinophilia Anxiety Depression Mild intermittent asthma ADHD Surgical History [place] teeth extracted Family History Mother FH: mental illness Paternal Grandmother FH: mental illness Maternal Aunt FH: mental illness Maternal Grandfather FH: mental illness Skin cancer Diabetes Paternal Grandfather Heart disease Maternal Grandfather Prostate cancer Maternal Uncle Skin cancer Other Hypertension Social History Housing: House Alcohol intake: current Comment: Ocasionally Patient Tobacco Use Status: Never used Tobacco e-Cigarette/Vaping Use: Never Used Second Hand Smoke Exposure: No service: No Current occupational status: unemployed Current occupational exposures/hazards: No Cognitive needs: No Hearing needs: No Vision needs: No Questionnaire PHQ-9 Over the last 2 weeks, how often have you been bothered by any of the following problems? 1. Little interest or pleasure in doing things: several days 2. Feeling down, depressed, or hopeless: more than half the days 3. Trouble falling or staying asleep, or sleeping too much: several days 4. Feeling tired or having little energy: several days 5. Poor appetite or overeating: not at all 6. Feeling bad about yourself - or that you are a failure or have let yourself or your family down: more than half the days 7. Trouble concentrating on things, such as reading the newspaper or watching television: several days 8. Moving or speaking so slowly that other people could have noticed. Or the opposite - being so fidgety or restless that you have been moving around a lot more than usual: several days 9. Thoughts that you would be better off or of hurting yourself in some way: more than half the days Total score: 11 Depression Screening Interpretation: Positive Depression Screening Done: Yes 76876 - PHQ-9 Billing: Yes Source: Developed by Drs. Jonathan Martins, Nilda Jaramillo, Terry Garcia and colleagues, with an educational champ from [employer]. Thrive Questionnaire Date Thrive assessed: 04/30/25 I am a: Patient What is your living situation today?: I have a steady place to live Within the past 12 months, did the food you bought not last and you didn't have the money to get more?: Never true Within the past 12 months, did you worry whether your food would run out before you got money to buy more?: Never true Do you have trouble paying for medicines?: No Do you have trouble getting transportation to medical appointments?: No Do you have trouble paying your heating and electricity bill?: No Do you have trouble taking care of your child, family member or friend?: No Are you currently unemployed and looking for a job?: I choose not to answer this question Are you interested in more education?: Yes Please select the resources that you would like help with: None Currently or been in a relationship where the following occur: I choose not to answer THRIVE Score: 0 AUDIT C Alcohol Use Questionnaire (AUDIT-C) 1. How often do you have a drink containing alcohol?: Monthly or less 2. How many drinks containing alcohol do you have on a typical day when you are drinking?: 1 or 2 3. How often do you have six or more drinks on one occasion?: Never Total Score: 1 CORETTA-7 AMB Questionnaire CORETTA-7 Date CORETTA - 7 assessed: 04/30/25 Feeling nervous, anxious, or on edge: 2 = More than half the days Not being able to stop or control worryin = More than half the days Worrying too much about different things: 2 = More than half the days Trouble relaxin = Several days Being so restless that it is hard to sit still: 1 = Several days Becoming easily annoyed or irritable: 1 = Several days Feeling afraid as if something awful might happen: 1 = Several days Total CORETTA-7 score (0-4 normal; 5-9 mild; 10-14 moderate; 15-21 severe): 10 Source: Developed by Drs. Jonathan Martins, Nilda Jaramillo, Terry aquino, with an educational champ from [employer]. CORETTA-7 Assessment Billing CORETTA-7 Assessment Tool: CORETTA-7 Assessment 34122 Physical exam (Primary Care) Vital Signs: Last Vital Signs Temp 98 F 04/30/25 13:08 Pulse 76 04/30/25 13:08 Resp 16 04/30/25 13:08 BP 121/56 L 04/30/25 13:08 Pulse Ox 96 04/30/25 13:08 Oxygen Delivery Method Room Air 04/30/25 13:08 BMI result Body Mass Index 27.2 Tobacco/Smoking Status: Tobacco use Status Tobacco use date assessed 04/30/25 05/01/25 08:39 Patient Tobacco Use Status Never used Tobacco 05/01/25 08:39 e-Cigarette/Vaping Use Never Used 05/01/25 08:39 PHQ-9: PHQ-9 Score PHQ-9: Total score 11 05/01/25 08:39 Depression Screening Interpretation: Positive Thrive Assessment: Date of Thrive Assessment Date Thrive assessed 04/30/25 05/01/25 08:39 Currently or been in a relationship where the following occur: I choose not to answer Narrative Physical Exam General: Well-appearing, in no acute distress. Vital signs: Within normal limits. HEENT: Normocephalic, atraumatic. PERRLA, EOMI. Conjunctiva clear, sclera anicteric. Oropharynx clear, mucous membranes moist. TMs intact bilaterally. Neck: Supple, no lymphadenopathy, no thyromegaly, no JVD or carotid bruits. Cardiovascular: RRR, normal S1/S2, no murmurs, rubs, or gallops. Peripheral pulses 2+ and symmetric. No edema. Respiratory: Lungs clear to auscultation bilaterally, no wheezes, rales, or rhonchi. Normal effort. Abdomen: Soft, non-tender, non-distended. Normoactive bowel sounds. No hepatosplenomegaly, no masses. MSK: Full range of motion, no joint swelling or deformity. Normal gait. Skin: Warm, dry, intact. No rashes, lesions, or pallor. Neuro: Alert and oriented x3. Cranial nerves II-XII intact. Strength 5/5 throughout. Sensation intact. Reflexes 2+ symmetric. Normal coordination and gait. Psych: Appropriate mood and affect. Normal judgment and insight. Currently on medication from [facility], feeling much better. Coding Level of Care Code Est Pt Level 3 (92910) Add On Problem Visit Only Diagnoses Eosinophilia D72.10 ADHD F90.9 Depression F32.A Anxiety F41.9 Mild intermittent asthma J45.20 Low HDL (under 40) E78.6 Additional Codes CORETTA-7 Assessment Billing - CORETTA-7 Assessment Tool: CORETTA-7 Assessment 77922 ([id number]) PHQ-9 - 13061 - PHQ-9 Billing: Yes ([id number]) Assessment & Plan Assessment & Plan (1) Eosinophilia: Code(s): D72.10 - Eosinophilia, unspecified Category: Medical (2) ADHD: Code(s): F90.9 - Attention-deficit hyperactivity disorder, unspecified type Category: Medical (3) Depression: Code(s): F32.A - Depression, unspecified Category: Medical (4) Anxiety: Code(s): F41.9 - Anxiety disorder, unspecified Category: Medical (5) Mild intermittent asthma: Code(s): J45.20 - Mild intermittent asthma, uncomplicated Category: Medical (6) Low HDL (under 40): Code(s): E78.6 - Lipoprotein deficiency Category: Medical Plan Consent Patient was informed and verbally consented to the use of an ambient scribe for clinic note documentation during this visit. Plan 1. Eosinophilia - The patient's eosinophils are elevated at 6%, with a cutoff of 4%. - As he is asymptomatic, no immediate action is planned. - Repeat labs in 6 months to re-evaluate. 2. Mild Dyslipidemia - Nonfasting lipid panel shows an HDL of 37 mg/dL, which is below the desired level of 40 mg/dL. - No concerns at this time for the LDL of 102 mg/dL given it was a nonfasting state. 3. Dehydration - Urinalysis shows an elevated specific gravity, indicating dehydration. - No other concerns were noted on the urine results. 4. Hepatitis B Immunity - Testing revealed the patient has no Hepatitis B antibodies, indicating a lack of vaccination. 5. Unspecified Behavioral Health Condition - The patient is under the care of [facility] and is on medication. - Will obtain information about his medication for our records. Discussion Notes I reviewed the patient's lab results with him and his mother. I noted that his eosinophils are slightly elevated, but since he feels well and has no complaints, there are no concerns at this time, and we can repeat the labs in 6 months. His lipids showed a slightly low HDL, but this is not concerning in a nonfasting state. I explained that his urine results suggest he is a little dehydrated. We discussed that his screening for STIs and HIV were all negative, and that he does not have immunity to Hepatitis B. I was informed that he is receiving care from [facility] and is on medication and feeling much better. I plan to obtain the medication information for my records. Patient Instructions - Please ensure you drink plenty of fluids as your urine test showed you were a little dehydrated. - We will need to repeat some of your blood work in about 6 months. - Please let our office know what medication you were prescribed by the specialist at [facility]. Medical Decision Making The patient is a 20-year-old male here for a review of his initial lab work. The majority of his results are reassuringly normal, including his CBC, metabolic panel, and screenings for diabetes, thyroid dysfunction, and STIs. His eosinophils are mildly elevated at 6%, but given he is asymptomatic with no complaints, the clinical significance is low, and watchful waiting with a repeat lab in 6 months is appropriate. His nonfasting lipid panel showed a slightly low HDL of 37 and an LDL of 102, neither of which warrants intervention at this time. Elevated urine specific gravity points to mild dehydration. The lack of Hepatitis B antibodies indicates he has not been vaccinated, and vaccination should be discussed. The patient's self-reported improvement with treatment from [facility] is a positive development. Obtaining collateral information about his medication will be important for medication reconciliation and continuity of care. Total Time Statement 20 min Total time spent caring for the patient today includes pre-visit chart review, documentation, review of laboratory and diagnostic imaging results, medication reconciliation, medically necessary evaluation, counseling on diagnoses, care coordination, ordering appropriate tests and medications, review of tests performed by other providers, reporting test results to the patient, and communication with other healthcare providers.
== END 2025-04-30 13:31 | disposition home or self-care (01) ==
LOC: HO.HMCFMS 12:56
PROVIDERS: PCP Student in an Organized Health Care Education/Training Program; Visit Provider Student in an Organized Health Care Education/Training Program
DX: D72.10 Eosinophilia, unspecified (principal); F90.9 Attention-deficit hyperactivity disorder, unspecified type; F32.A Depression, unspecified; F41.9 Anxiety disorder, unspecified; J45.20 Mild intermittent asthma, uncomplicated; E78.6 Lipoprotein deficiency

== ENCOUNTER → 2025-04-30 12:56 | Outpatient (BNVA) | payer OTHER, SELFPAY | PROVIDERS: Visit Provider Student in an Organized Health Care Education/Training Program | DX: D72.10 Eosinophilia, unspecified (principal); F90.9 Attention-deficit hyperactivity disorder, unspecified type; F32.A Depression, unspecified; F41.9 Anxiety disorder, unspecified; J45.20 Mild intermittent asthma, uncomplicated; E78.6 Lipoprotein deficiency; Z13.31 Encounter for screening for depression; Z13.39 Encounter for screening examination for other mental health and behavioral disorders | CPT/HCPCS: 96127 ==